=== PATIENT | male | born 2000 | race Caucasian/White ===

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

== ENCOUNTER → 2025-07-03 | Outpatient (CLI) | payer OTHER ==
[~2025-07-03] MED LIST changes: +AMOCLA875 PO; +HYDR1TAB94 PO; +PRED20 PO
== END ==
LOC: LAB SHORT 14:48 → LAB 14:48
DX: L08.9 Local infection of the skin and subcutaneous tissue, unspecified (principal)
CPT/HCPCS: 87070; 87075; 87205